=== PATIENT | male | born 1990 | race Caucasian/White ===

== ENCOUNTER 2018-03-05 02:55 | Emergency (ER) | payer OTHER ==
[2018-03-05] MEDS ORDERED: fentaNYL 100 MCG/2 ML INJ IVP ONE (03:10)
[2018-03-05] MEDS ORDERED: NS 1,000 ML IV ONE (03:10)
[2018-03-05] MEDS ORDERED: ONDANSETRON 4 MG/2 ML VIAL IVP ONE (03:10)
--- NOTE | 2018-03-05 03:18 | EDPHY ---
H & P Stated Complaint: R FLANK PAIN X 1 HR Time Seen by Provider: 03/05/18 03:03 HPI/ROS: Chief Complaint: Flank pain HPI: 27-year-old male woke with right flank pain this morning. Has some nausea. Pain is a 7/10. It is constant. There are no aggravating or alleviating factors. Denies any heavy lifting or moving. Patient states he is now back in school at [employer]. No falls. No other traumatic injuries. No history of similar symptoms in the past. No urinary urgency or frequency. Pain is nonradiating ROS: 10 point Review of Systems is negative except as noted in the HPI. PMH: Denies Social History: No smoking, occasional alcohol, occasional marijuana Family History: non-contributory Physical Exam: Gen: Awake, Alert, uncomfortable appearing HEENT: Nose: no rhinorrhea Eyes: PERRLA, EOMI Mouth: Moist mucosa Neck: Supple, no JVD Chest: nontender, lungs clear to auscultation Heart: S1, S2 normal, no murmur Abd: Soft, non-tender, no guarding Back: no CVA tenderness, no midline tenderness Ext: no edema, non-tender Skin: no rash Neuro: CN II-XII intact, Sensation grossly intact, Strength 5/5 in bilateral upper and lower extremities - Personal History Current Tetanus Diphtheria and Acellular Pertussis (TDAP): Yes - Medical/Surgical History Hx Asthma: No Hx Chronic Respiratory Disease: No Hx Diabetes: No Hx Cardiac Disease: No Hx Renal Disease: No Hx Cirrhosis: No Hx Alcoholism: No Hx HIV/AIDS: No Hx Splenectomy or Spleen Trauma: No Other PMH: DENIES - Social History Smoking Status: Never smoked Constitutional: Initial Vital Signs Temperature (C) 36.6 C 03/05/18 02:59 Heart Rate 74 03/05/18 02:59 Respiratory Rate 16 03/05/18 02:59 Blood Pressure 163/101 H 03/05/18 02:59 O2 Sat (%) 98 03/05/18 02:59 O2 Delivery Mode Room Air Allergies/Adverse Reactions: No Known Allergies Allergy (Unverified 03/05/18 02:58) Home Medications: Medication Instructions Recorded Hydrocodone/Acetaminophen 1 - 2 each PO Q4-6PRN PRN #10 03/05/18 [Hydrocodon-Acetaminophen 5-325] tablet Tamsulosin HCl 0.4 mg PO DAILY #10 cap 03/05/18 Medical Decision Making ED Course/Re-evaluation: Patient has hematuria, normal renal function and remainder of his blood work is unremarkable. Pain is gone after some fentanyl and Toradol. We discussed at length the advantages and disadvantages of CT scanning to assess stone. He would prefer to follow up with Urology as an outpatient early next week as opposed to getting a scan this morning and I think that that is appropriate. I do not think it will supervisor records change at this time. Will send him home with a urine strainer. Tamsulosin, anti-inflammatories and [place] if needed. - Data Points Laboratory Results: Laboratory Results 03/05/18 03:25 03/05/18 03:25 03/05/18 03/05/18 03/05/18 04:16 03:25 03:25 WBC 12.67 10^3/uL H 10^3/uL (3.80-9.50) RBC 5.59 10^6/uL 10^6/uL (4.40-6.38) Hgb 16.4 g/dL g/dL (13.7-17.5) Hct 47.3 % % (40.0-51.0) MCV 84.6 fL fL (81.5-99.8) MCH 29.3 pg pg (27.9-34.1) MCHC 34.7 g/dL g/dL (32.4-36.7) RDW 12.6 % % (11.5-15.2) Plt Count 340 10^3/uL 10^3/uL (150-400) MPV 10.6 fL fL (8.7-11.7) Neut % (Auto) 47.4 % % (39.3-74.2) Lymph % (Auto) 41.3 % % (15.0-45.0) Henry % (Auto) 8.1 % % (4.5-13.0) Eos % (Auto) 2.3 % % (0.6-7.6) Baso % (Auto) 0.5 % % (0.3-1.7) Nucleat RBC Rel Count 0.0 % % (0.0-0.2) Absolute Neuts (auto) 6.02 10^3/uL 10^3/uL (1.70-6.50) Absolute Lymphs (auto) 5.23 10^3/uL H 10^3/uL (1.00-3.00) Absolute Monos (auto) 1.02 10^3/uL H 10^3/uL (0.30-0.80) Absolute Eos (auto) 0.29 10^3/uL 10^3/uL (0.03-0.40) Absolute Basos (auto) 0.06 10^3/uL 10^3/uL (0.02-0.10) Absolute Nucleated RBC 0.00 10^3/uL 10^3/uL (0-0.01) Immature Gran % 0.4 % % (0.0-1.1) Seg Neutrophils % 57 % % Lymphocytes % 34 % % Monocytes % 7 % % Eosinophils % 2 % % Immature Gran # 0.05 10^3/uL 10^3/uL (0.00-0.10) Absolute Seg Neuts 7.22 10^/uL H 10^/uL (1.70-6.50) Absolute Lymphocytes 4.31 10^3/uL H 10^3/uL (1.00-3.00) Absolute Monocytes 0.89 10^3/uL H 10^3/uL (0.30-0.80) Absolute Eosinophils 0.25 10^3/uL 10^3/uL (0.03-0.40) RBC/WBC/PLT Morphology NORMAL (NORMAL) Atypical Lymphocytes 1+ H Platelet Estimate ADEQUATE (ADEQ) Sodium 145 mEq/L mEq/L (135-145) Potassium 3.6 mEq/L mEq/L (3.5-5.2) Chloride 105 mEq/L mEq/L (97-110) Carbon Dioxide 23 mEq/l mEq/l (22-31) Anion Gap 17 mEq/L H mEq/L (8-16) BUN 17 mg/dL mg/dL (7-23) Creatinine 1.1 mg/dL mg/dL (0.7-1.3) Estimated GFR > 60 Glucose 108 mg/dL H mg/dL (70-100) Calcium 10.4 mg/dL mg/dL (8.5-10.4) Urine Color YELLOW Urine Appearance CLEAR Urine pH 6.0 (5.0-7.5) Ur Specific [place] 1.015 (1.002-1.030) Urine Protein NEGATIVE (NEGATIVE) Urine Ketones NEGATIVE (NEGATIVE) Urine Blood 2+ H (NEGATIVE) Urine Nitrate NEGATIVE (NEGATIVE) Urine Bilirubin NEGATIVE (NEGATIVE) Urine Urobilinogen NEGATIVE EU EU (0.2-1.0) Ur Leukocyte Esterase NEGATIVE (NEGATIVE) Urine RBC 25-50 /hpf H /hpf (0-3) Urine WBC 1-3 /hpf /hpf (0-3) Ur Epithelial Cells TRACE /lpf /lpf (NONE-1+) Urine Mucus TRACE /lpf /lpf (NONE-1+) Urine Glucose NEGATIVE (NEGATIVE) Medications Given: Discontinued Medications Fentanyl (Sublimaze) 100 mcg IVP EDNOW ONE Stop: 03/05/18 03:11 Last Admin: 03/05/18 03:21 Dose: 100 mcg Sodium Chloride (Ns) 1,000 mls @ 0 mls/hr IV ONCE ONE; Wide Open PRN Reason: Protocol Stop: 03/05/18 03:11 Last Admin: 03/05/18 03:19 Dose: 1,000 mls Ketorolac Tromethamine (Toradol) 15 mg IVP EDNOW ONE Stop: 03/05/18 03:51 Last Admin: 03/05/18 03:54 Dose: 15 mg Ondansetron HCl (Zofran) 4 mg IVP EDNOW ONE Stop: 03/05/18 03:11 Last Admin: 03/05/18 03:20 Dose: 4 mg Departure - Departure Disposition: Home, Routine, Self-Care Clinical Impression: Kidney stone Condition: Good Instructions: Kidney Stones (ED) Additional Instructions: Make sure to drink at least 8, 8 oz glasses of water a day. He may take ibuprofen, 600 mg 3 times a day. You may take [place] 1-2 tabs every 4-6 hours as needed for breakthrough pain. Take tamsulosin every day to help facilitate passage of the kidney stone. Follow up with Urology, DR Hernandez, in 2-3 days for further evaluation. Strain your urine to collect the stone and take it to your urology appointment. Return to the emergency department for increasing pain, nausea vomiting, fevers , chills, or any other concerns. Referrals: Amberly Mai MD [Medical Doctor] - As per Instructions Carloz Hernandez MD [Medical Doctor] - As per Instructions Prescriptions: Hydrocodone/Acetaminophen [Hydrocodon-Acetaminophen 5-325] 1 - 2 each PO Q4- 6PRN PRN #10 tablet PRN Reason: Pain, Severe Tamsulosin HCl 0.4 mg PO DAILY #10 cap
[2018-03-05 03:30] LABS: PLATELET COUNT 340 10^3/uL (150-400)
[2018-03-05] MEDS ORDERED: KETOROLAC 15 MG/1 ML SDV IVP ONE (03:50)
[2018-03-05 04:20] VITALS: BP 145/75
[2018-03-05] MEDS ORDERED: TAMSULOSIN HCL 0.4 MG CAP PO ONE (04:43)
== END 2018-03-05 04:57 | disposition home or self-care (01) ==
DX: N20.0 Calculus of kidney (principal); E86.9 Volume depletion, unspecified
CPT/HCPCS: 96374; J1885; J2405; J3010